=== PATIENT | male | born 1940 | race Hispanic/Latino ===

== ENCOUNTER 2017-12-13 06:19 | Inpatient (IN) | payer MEDICARE, OTHER ==
[2017-12-13 06:31] VITALS: BMI 23.3
--- NOTE | 2017-12-13 07:04 | CP.PCM.HP ---
History of Present Illness - History of Present Illness History of Present Illness: PMD: Dr David Orthopedic: Dr Higginbotham Chief Complaint: Right Hip pain HPI: 77 years old male with hx of Osteoarthritis of the left and right hips, and had left total hip replacement two years ago. He has been having persistent right hip pain and has failed conservative management. He was seen by his Orthopedist Dr Higginbotham and Surgery was discussed. He now comes to have an elective right total hip replacement. 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 absent: Diplopia, Floaters, Loss of Peripheral Vision Ears: Decreased Hearing. absent: Ear Discharge, Ear Pain, Tinnitus Nose/Mouth/Throat: absent: Epistaxis, Nasal Congestion, Nasal Discharge - Cardiovascular Cardiovascular: absent: Chest Pain, Dyspnea, Edema - Respiratory Respiratory: absent: Cough, Dyspnea, Wheezing, Stridor - Gastrointestinal Gastrointestinal: absent: Abdominal Pain, Constipation, Diarrhea, Nausea, Vomiting - Genitourinary Genitourinary: absent: Dysuria, Hematuria, Urinary Frequency - Musculoskeletal Musculoskeletal: Arthralgias. absent: Back Pain Additional comments: Right hip pain - Integumentary Integumentary: absent: Pruritus, Rash, Skin Ulcer, Sores, Striae, Swelling - Neurological Neurological: absent: Confusion, Focal Weakness, Syncope, Weakness - Psychiatric Psychiatric: absent: Anxiety, Depression, Panic Attacks - Endocrine Endocrine: absent: Palpitations, Polydipsia, Polyphagia, Polyuria - Hematologic/Lymphatic Hematologic: absent: Easy Bleeding, Easy Bruising Past Patient History - Infectious Disease Hx of Infectious Diseases: None - Tetanus Immunizations Tetanus Immunization: Unknown - Past Medical History & Family History Past Medical History?: No - Past Social History Smoking Status: Former Smoker Chewing Tobacco Use: No Cigar Use: No Alcohol: Occasional Home Situation {Lives}: With Family - CARDIAC Hx Cardiac Disorders: No - PULMONARY Hx Respiratory Disorders: No - NEUROLOGICAL Hx Neurological Disorder: No - HEENT Hx HEENT Problems: No - RENAL Hx Chronic Kidney Disease: No - ENDOCRINE/METABOLIC Hx Endocrine Disorders: No - HEMATOLOGICAL/ONCOLOGICAL Hx Blood Disorders: No - INTEGUMENTARY Hx Dermatological Problems: No - MUSCULOSKELETAL/RHEUMATOLOGICAL Hx Musculoskeletal Disorders: No - GASTROINTESTINAL Hx Gastrointestinal Disorders: No - GENITOURINARY/GYNECOLOGICAL Hx Genitourinary Disorders: No - PSYCHIATRIC Hx Psychophysiologic Disorder: No Hx Substance Use: No - SURGICAL HISTORY Hx Surgeries: Yes Hx Herniorrhaphy: Yes Hx Musculoskeletal Surgery: Yes (Left knee miniscus repair) Hx Orthopedic Surgery: Yes (2016 R hip) - ANESTHESIA Hx Anesthesia: Yes Hx Anesthesia Reactions: No Hx Malignant Hyperthermia: No Has any member of the family had a problem w/ anesthesia?: No Meds Allergies/Adverse Reactions: Allergies Allergy/AdvReac Type Severity Reaction Status Date / Time Penicillins Allergy RASH Verified 12/13/17 06:47 Physical Exam - Constitutional Appears: No Acute Distress - Head Exam Head Exam: ATRAUMATIC, NORMAL INSPECTION, NORMOCEPHALIC - Eye Exam Eye Exam: EOMI, Normal appearance Pupil Exam: NORMAL ACCOMODATION, PERRL - ENT Exam ENT Exam: Mucous Membranes Moist, Normal Exam, Normal External Ear Exam - Neck Exam Neck exam: Positive for: Full Rom, Normal Inspection. Negative for: Lymphadenopathy, Tenderness - Respiratory Exam Respiratory Exam: Clear to Auscultation Bilateral. absent: Rales, Rhonchi, Wheezes - Cardiovascular Exam Cardiovascular Exam: REGULAR RHYTHM, RRR, +S1, +S2 - GI/Abdominal Exam GI & Abdominal Exam: Normal Bowel Sounds, Soft. absent: Mass, Organomegaly, Tenderness - Rectal Exam Rectal Exam: Deferred - Extremities Exam Extremities exam: Positive for: normal inspection. Negative for: calf tenderness, pedal edema - Back Exam Back exam: NORMAL INSPECTION. absent: CVA tenderness (L), CVA tenderness (R) - Neurological Exam Neurological exam: Alert, CN II-XII Intact, Oriented x3, Reflexes Normal - Psychiatric Exam Psychiatric exam: Normal Affect, Normal Mood - Skin Skin Exam: Dry, Intact, Normal Color, Warm Assessment & Plan - Assessment and Plan (Free Text) Assessment: #. Severe Osteoarthritis Right hip Plan: 77 years old male with hx of Osteoarthritis of the left and right hips, and had left total hip replacement two years ago. He has been having persistent right hip pain and has failed conservative management. He was seen by his Orthopedist Dr Higginbotham and Surgery was discussed. He now comes to have an elective right total hip replacement. #. Primary Osteoarthritis Right hip - Dr Higginbotham orthopedist on consult - Orthopedic management - PT/OT post surgery #. DVT prophylaxis post surgery with lovenox #. Code Status: Full The patient was cleared for surgery by Dr David Cleared for Surgery Constantine Santos MD ( - Date & Time Date: 12/13/17 Time: 07:04
[2017-12-13] MEDS ORDERED: Succinylcholine 200 mg/10 ml Inj IV ONE (07:15)
[2017-12-13] MEDS ORDERED: Lidocaine 4% (Laryng-O-Jet) Kit MM ONE (07:15)
[2017-12-13] MEDS ORDERED: Midazolam 2 MG/2 ML VIAL ONE (07:15)
[2017-12-13] MEDS ORDERED: Propofol 10 mg/ml Inj (20 ML) ONE (07:15)
[2017-12-13] MEDS ORDERED: Lidocaine 1% 5ml Abboject IV ONE (07:16)
[2017-12-13] MEDS ORDERED: Lactated Ringer's 1,000 ML IV ONE ×3 (07:20→09:50)
[2017-12-13] MEDS ORDERED: Phenylephrine 10 mg/ml Inj ONE (07:22)
[2017-12-13] MEDS ORDERED: Rocuronium 10 mg/ml (5 ml) ONE ×2 (07:32→10:14)
--- NOTE | 2017-12-13 07:41 | CP.PCM.CON ---
History of Present Illness - History of Present Illness History of Present Illness: Patient is a 77 y/o male with no significant PMH who c/o severe right hip pain. He denies any injury or trauma to the hip but notes that the pain began approximately 2 years ago and has progressed gradually. Over the last few months, the pain had significantly increased hindering him from performing his usual daily activities such as walking, sitting and sleeping. The pain has been resistant to conservative means with PT and oral medications. The pain is severe, dull and aching and located in the groin and lateral hip. He has history of succesful R KITTY 2 years ago. He denies any radiation of pain, numbess or tingling to the lower extremities. He denies CP/SOB/N/V/D/ZULUAGA/dysuria/ melena. Review of Systems - Review of Systems All systems: reviewed and no additional remarkable complaints except Review of Systems: as per HPI Past Patient History - Infectious Disease Hx of Infectious Diseases: None - Tetanus Immunizations Tetanus Immunization: Unknown - Past Medical History & Family History Past Medical History?: No - Past Social History Smoking Status: Former Smoker Alcohol: Occasional Home Situation {Lives}: With Family - CARDIAC Hx Cardiac Disorders: No - PULMONARY Hx Respiratory Disorders: No - NEUROLOGICAL Hx Neurological Disorder: No - HEENT Hx HEENT Problems: No - RENAL Hx Chronic Kidney Disease: No - ENDOCRINE/METABOLIC Hx Endocrine Disorders: No - HEMATOLOGICAL/ONCOLOGICAL Hx Blood Disorders: No - INTEGUMENTARY Hx Dermatological Problems: No - MUSCULOSKELETAL/RHEUMATOLOGICAL Hx Musculoskeletal Disorders: No - GENITOURINARY/GYNECOLOGICAL Hx Genitourinary Disorders: No - PSYCHIATRIC Hx Psychophysiologic Disorder: No Hx Substance Use: No - SURGICAL HISTORY Hx Surgeries: Yes Hx Herniorrhaphy: Yes Hx Musculoskeletal Surgery: Yes (Left knee arthroscopy) Hx Orthopedic Surgery: Yes (2016 R hip) - ANESTHESIA Hx Anesthesia: Yes Hx Anesthesia Reactions: No Hx Malignant Hyperthermia: No Has any member of the family had a problem w/ anesthesia?: No Meds Allergies/Adverse Reactions: Allergies Allergy/AdvReac Type Severity Reaction Status Date / Time Penicillins Allergy RASH Verified 12/13/17 06:47 - Medications Medications: none Physical Exam - Constitutional Appears: No Acute Distress - Head Exam Head Exam: ATRAUMATIC, NORMOCEPHALIC - Eye Exam Eye Exam: EOMI, Normal appearance, PERRL - ENT Exam ENT Exam: Mucous Membranes Moist - Respiratory Exam Respiratory Exam: NORMAL BREATHING PATTERN - GI/Abdominal Exam GI & Abdominal Exam: Normal Bowel Sounds, Soft. absent: Tenderness - Extremities Exam Additional comments: R hip: + tenderness to groin and lateral hip, no lesion or deformity restricted ROM secondary to pain sensation intact SP/DP/TN motor intact EHL/FHL/TA/G pedal pulses intact comp soft NT L hip: no tenderness to groin and lateral hip, no deformity, old KITTY scar laterally FROM sensation intact SP/DP/TN motor intact EHL/FHL/TA/G pedal pulses intact comp soft NT Results - Vital Signs Recent Vital Signs: Last Vital Signs Temp 97.8 F 12/13/17 07:00 Pulse 67 12/13/17 07:00 Resp 18 12/13/17 07:00 BP 138/77 12/13/17 07:00 Pulse Ox 97 12/13/17 07:00 Assessment & Plan (1) Osteoarthritis of right hip Assessment and Plan: -OR for Right total hip arthroplasty -medically cleared for procedure -Patient was explained the benefits/risks/adv/disadv of surgery in detail. Patient expresses understanding and agrees to proceed with above procedure -above d/w Dr. Higginbotham in agreement Status: Acute
[2017-12-13] MEDS ORDERED: Morphine 1 mg/ml preservative-free Inj(Duramorph) ONE (08:00)
[2017-12-13] MEDS ORDERED: Bupivacaine 0.5% Inj(30mL) ONE (08:05)
[2017-12-13] MEDS ORDERED: methylPREDNISolone Depo 80 mg/ml Inj ONE (08:05)
[2017-12-13] MEDS ORDERED: Lidocaine Hydrochloride 1% 0 ML ONE (08:05)
[2017-12-13] MEDS ORDERED: Bacitracin Ointment 30 GM TUBE ONE (08:05)
[2017-12-13] MEDS ORDERED: Absorbable Gelatin Sponge Size 100 ONE (08:05)
[2017-12-13] MEDS ORDERED: Thrombin Topical 5,000 Int Units Spray Kit ONE (08:06)
[2017-12-13] MEDS ORDERED: ePHEDrine 50 mg/ml Inj ONE (08:12)
[2017-12-13] MEDS ORDERED: Absorbable Gelatin Sponge Size 100 TP ONE (09:30)
[2017-12-13] MEDS ORDERED: Thrombin Topical 5,000 Int Units Spray Kit TOP ONE ×2 (09:30)
[2017-12-13] MEDS ORDERED: TRANEXAMIC ACID IVPB STA ×2 (11:14→11:38)
[2017-12-13] MEDS ORDERED: SODIUM CHLORIDE 0.9% IVPB STA ×2 (11:14→11:38)
[2017-12-13] MEDS ORDERED: Oxycodone/Acetaminophen 5/325 mg Tab PO PRN (11:37)
[2017-12-13] MEDS ORDERED: DiphenhydrAMINE 50 mg/ml Inj IVP PRN (11:39)
--- NOTE | 2017-12-13 11:43 | PCM.SURG1 ---
Surgeon's Initial Post Op Note - Surgeon's Notes Surgeon: Neftaly Actimize Architect: REDDY Hendrix, 2nd assist Juan Cedillo Type of Anesthesia: General Endo, Spinal Anesthesia Administered By: Dr Martinez Pre-Operative Diagnosis: Severe hypertrophic Osteoarthritis R hip Operative Findings: as above. synovits R hip. iliopsoas tendon contracture Post-Operative Diagnosis: as above Operation Performed: R THR- anterior approach. femoral neck osteotomy. release iliosoas tendon\. autograft bone graft to acetabulum Specimen/Specimens Removed: bone/cartilage/synovium Estimated Blood Loss: EBL {In ML}: 100 Blood Products Given: N/A Drains Used: No Drains Post-Op Condition: Good Date of Surgery/Procedure: 12/13/17 Time of Surgery/Procedure: 09:10 (rtime in room/anesthesia industion time 7:55)
[2017-12-13] MEDS ORDERED: Tranexamic Acid 100 mg/ml IV ONE (12:30)
--- NOTE | 2017-12-13 14:16 | RAD ---
PROCEDURE: Fluoroscopy up to 1 hr. HISTORY: Fluoroscopic assistance for right hip replacement. COMPARISON: None TECHNIQUE: Standard protocol for this study/examination. FINDINGS: Total fluoroscopic time (continuous mode) utilized during the procedure 16.4 (seconds). Total exam DLP: (mGy) 1.76. IMPRESSION: Less than 1 hr fluoroscopic time utilized during performance of the procedure.
--- NOTE | 2017-12-13 14:38 | RAD ---
PROCEDURE: Right Hip Radiographs. HISTORY: s/p right hip TRR anterior COMPARISON: 03/01/2016 left hip FINDINGS: BONES: Left hip prosthesis in stable, satisfactory position. Unremarkable right hip prosthesis. No evidence of subluxation/dislocation or protrusio nor is there evidence of loosening. JOINTS: Normal. SOFT TISSUES: Normal. OTHER FINDINGS: None. IMPRESSION: Satisfactory postoperative status.
[2017-12-13] MEDS: Clindamycin 600mg/50ml D5W 600 MG/50 ML VIAL IVPB SCH (17:19)
[2017-12-13] MEDS: Lactated Ringer's 1,000 ML IV SCH (17:25)
[2017-12-14] MEDS: Clindamycin 600mg/50ml D5W 600 MG/50 ML VIAL IVPB SCH (00:21)
[2017-12-14] MEDS: Lactated Ringer's 1,000 ML IV SCH ×2 (01:05→03:41)
[2017-12-14 06:47] LABS: HEMOGLOBIN 9.6 g/dL (12.0-18.0); MEAN CELL VOLUME 95.7 fl (80.0-94.0); MEAN CORPUSCULAR HEMOGLOBIN 32.7 pg (27.0-31.0); MEAN CORPUSCULAR HGB CONC 34.1 g/dL (33.0-37.0); RBC 2.95 Mil/uL (4.40-5.90); RED CELL DISTRIBUTION WIDTH 13.1 % (11.5-14.5); WHITE BLOOD COUNT 7.4 K/uL (4.8-10.8)
[2017-12-14 06:58] LABS: BLOOD UREA NITROGEN 16 mg/dl (9-20); CALCIUM 7.8 mg/dL (8.4-10.2); GFR AFRICAN-AMERICAN > 60; GFR NON-AFRICAN AMERICAN > 60
[2017-12-14 07:04] LABS: INR 1.3 (0.9-1.2); PARTIAL THROMBOPLASTIN TIME 25.4 Seconds (25.6-37.1); PROTHROMBIN TIME 14.7 Seconds (9.8-13.1)
[2017-12-14 07:57] VITALS: BP 103/63; PULSE 88; RESP 18; O2SAT 96
[2017-12-14] MEDS ORDERED: Enoxaparin 40 mg Syringe SC SCH (09:00)
--- NOTE | 2017-12-14 09:46 | CP.PCM.PN ---
Subjective - Date & Time of Evaluation Date of Evaluation: 12/14/17 Time of Evaluation: 09:44 - Subjective Subjective: Ortho f/u Dr. Higginbotham Patient states pain is well controlled. Tolerated PT very well yesterday. Denies CP/SOB/dizziness/numbness/tingling. Good PO intake. Objective - Vital Signs/Intake and Output Vital Signs (last 24 hours): Temp Pulse Resp BP Pulse Ox 99.2 F 88 18 103/63 96 12/14/17 07:57 12/14/17 07:57 12/14/17 07:57 12/14/17 07:57 12/14/17 07:57 - Medications Medications: Current Medications Acetaminophen (Tylenol 325mg Tab) 650 mg PO Q4 PRN PRN Reason: Fever 101 degrees fahrenheit Last Admin: 12/14/17 03:38 Dose: 650 mg Diphenhydramine HCl (Benadryl) 50 mg IVP Q6 PRN PRN Reason: Itching / Pruritus Docusate Sodium (Colace) 100 mg PO BID [facility] Last Admin: 12/13/17 16:27 Dose: 100 mg Enoxaparin Sodium (Lovenox) 40 mg SC DAILY [facility] PRN Reason: Protocol Ferrous Sulfate (Feosol) 325 mg PO BID [facility] Last Admin: 12/13/17 16:28 Dose: 325 mg Lactated Ringer's (Lactated Ringer's) 1,000 mls @ 125 mls/hr IV .Q8H [facility] Last Admin: 12/14/17 03:41 Dose: Not Given Morphine Sulfate (Morphine) 2 mg IVP Q4 PRN PRN Reason: Pain, severe (8-10) Ondansetron HCl (Zofran Inj) 4 mg IVP Q6 PRN PRN Reason: Nausea/Vomiting Ondansetron HCl (Zofran Inj) 4 mg IVP ONCE PRN PRN Reason: Nausea/Vomiting Oxycodone/Acetaminophen (Percocet 5/325 Mg Tab) 2 tab PO Q4 PRN PRN Reason: Pain, severe (8-10) Stop: 12/16/17 11:38 - Labs Labs: 12/14/17 05:35 12/14/17 05:35 PT 14.7 Seconds (9.8-13.1) H 12/14/17 05:35 INR 1.3 (0.9-1.2) H 12/14/17 05:35 APTT 25.4 Seconds (25.6-37.1) L 12/14/17 05:35 - Extremities Exam Additional comments: right hip: dressing change. Incision intact, dry, no erythema, mild swelling only to thigh +ROM ankle/toes, sensation intact +DP/PT pulses calves soft NT neg homans Assessment and Plan (1) Osteoarthritis of right hip Assessment & Plan: POD#1 s/p right THR d/c home today with home PT patient has walker continue aspiring 81mg PO BID for VTE proph on discharge keep incision dry/dressed f/u Dr. Higginbotham 7-10 days call for appointment d/w Dr. Higginbotham, agrees with above Status: Acute
[2017-12-14 11:40] VITALS: TEMP 98.1
--- NOTE | 2017-12-14 11:43 | CP.PCM.DIS ---
Provider - Provider Date of Admission: 12/13/17 08:09 Attending physician: Constantine Santos Primary care physician: Escobar Higginbotham III, MD Consults: Ortho: Dr Higginbotham Time Spent in preparation of Discharge (in minutes): 25 Diagnosis - Discharge Diagnosis (1) Osteoarthritis of right hip Status: Chronic (2) Status post total hip replacement, right Status: Acute (3) DVT prophylaxis Status: Acute Hospital Course - Lab Results Lab Results: Most Recent Lab Values WBC 7.4 K/uL (4.8-10.8) 12/14/17 05:35 RBC 2.95 Mil/uL (4.40-5.90) L 12/14/17 05:35 Hgb 9.6 g/dL (12.0-18.0) L 12/14/17 05:35 Hct 28.3 % (35.0-51.0) L 12/14/17 05:35 MCV 95.7 fl (80.0-94.0) H 12/14/17 05:35 MCH 32.7 pg (27.0-31.0) H 12/14/17 05:35 MCHC 34.1 g/dL (33.0-37.0) 12/14/17 05:35 RDW 13.1 % (11.5-14.5) 12/14/17 05:35 Plt Count 186 K/uL (130-400) 12/14/17 05:35 PT 14.7 Seconds (9.8-13.1) H 12/14/17 05:35 INR 1.3 (0.9-1.2) H 12/14/17 05:35 APTT 25.4 Seconds (25.6-37.1) L 12/14/17 05:35 Sodium 136 mmol/l (132-148) 12/14/17 05:35 Potassium 4.3 MMOL/L (3.6-5.0) 12/14/17 05:35 Chloride 101 mmol/L (98-107) 12/14/17 05:35 Carbon Dioxide 25 mmol/L (22-30) 12/14/17 05:35 Anion Gap 14 (10-20) 12/14/17 05:35 BUN 16 mg/dl (9-20) 12/14/17 05:35 Creatinine 0.9 mg/dl (0.8-1.5) 12/14/17 05:35 Est GFR ( Amer) > 60 12/14/17 05:35 Est GFR (Non-Af Amer) > 60 12/14/17 05:35 Random Glucose 119 mg/dL (75-110) H 12/14/17 05:35 Calcium 7.8 mg/dL (8.4-10.2) L 12/14/17 05:35 Blood Type A NEGATIVE 12/13/17 07:41 Antibody Screen Negative 12/13/17 07:41 Crossmatch See Detail 12/13/17 07:41 BBK History Checked Patient has bt 12/13/17 07:41 - Hospital Course Hospital Course: 77 years old male with hx of Osteoarthritis of the left and right hip, and had left total hip replacement two years ago. He has been having persistent right hip pain and has failed conservative management. He was seen by his Orthopedic Surgeon Dr Higginbotham - recommended right total hip replacement. 1. Primary Osteoarthritis Right hip s/p THR - Ortho : DR Higginbotham - pt underwent THR -Pain mgt - Pt received IV Clinda x 3 doses -PT/OT consulted- rec Home PT - DVT proph 2. DVT prophylaxis post surgery with lovenox Discharge Exam - Head Exam Head Exam: ATRAUMATIC, NORMAL INSPECTION, NORMOCEPHALIC - Eye Exam Eye Exam: EOMI, Normal appearance Pupil Exam: NORMAL ACCOMODATION - ENT Exam ENT Exam: Mucous Membranes Moist, Normal External Ear Exam - Neck Exam Neck exam: Full Rom - Respiratory Exam Respiratory Exam: NORMAL BREATHING PATTERN. absent: Respiratory Distress - Cardiovascular Exam Cardiovascular Exam: REGULAR RHYTHM, +S1, +S2 - GI/Abdominal Exam GI & Abdominal Exam: Normal Bowel Sounds, Soft. absent: Tenderness - Extremities Exam Extremities exam: normal capillary refill, pedal pulses present Additional comments: no calf tenderness right hip dressing intact - Back Exam Back exam: FULL ROM. absent: CVA tenderness (L), CVA tenderness (R) - Neurological Exam Neurological exam: Alert, CN II-XII Intact, Oriented x3, Reflexes Normal - Psychiatric Exam Psychiatric exam: Normal Affect, Normal Mood - Skin Skin Exam: Dry, Normal Color, Warm Discharge Plan - Discharge Medications Prescriptions: Aspirin [Adult Aspirin Regimen] 81 mg PO BID #60 tablet. Docusate [Colace] 100 mg PO BID #60 cap Ferrous Sulfate [Feosol] 325 mg PO BID #60 tab oxyCODONE/Acetaminophen [Percocet 5/325 mg Tab] 1 tab PO Q6 #20 tab - Follow Up Plan Condition: GOOD Disposition: HOME/ ROUTINE Instructions: Anterior Hip Replacement (DC) Additional Instructions: follow up with Dr. Higginbotham and your primary MD in 1 wk Home PT Referrals: Escobar Higginbotham III, MD [Primary Care Provider] -
--- NOTE | 2017-12-15 16:21 | OP ---
PROCEDURE DATE: 12/13/2017 PREOPERATIVE DIAGNOSIS: Severe hypertrophic osteoarthritis of the right hip. POSTOPERATIVE DIAGNOSIS: Severe hypertrophic osteoarthritis of the right hip. OPERATIVE FINDINGS: 1. Severe hypertrophic osteoarthritis of the right hip. 2. Synovitis of the right hip. 3. Iliopsoas tendon contracture. OPERATION PERFORMED: 1. Right total hip replacement arthroplasty, anterior approach. 2. Femoral neck osteotomy. 3. Release of iliopsoas tendon. 4. Autograft bone graft to the acetabulum. SPECIMENS REMOVED: Bone cartilage, synovium. ESTIMATED BLOOD LOSS: 100 mL. BLOOD PRODUCTS GIVEN: None. DRAINS: None. POSTOPERATIVE CONDITION: Stable. DATE OF SURGERY: 12/13/2017. TIME IN THE ROOM: 7:55. INCISION TIME: 9:10. SURGEON: Escobar Higginbotham MD PUTTY PATCHER: Aga Harrell, certified registered nursing visitor use assistant. SECOND WOOD EXPERIMENTAL MECHANIC: Juan Riley PA-C OPERATIVE INDICATIONS: Dominick Nunn is a 77-year-old gentleman, who is well known to my practice, who presents with severe pain and restricted range of motion of the right hip for a long period of time. The patient is 2 years status post contralateral hip replacement arthroplasty. The patient presents at this point in time for right total hip replacement arthroplasty. Pros, cons, risks, and benefits of surgical approach were discussed. The possibility of mechanical failure, infection, leg length inequality, thromboembolic disease, secondary or tertiary surgery were discussed. The patient has failed a conservative course consisting of activity modification, nonsteroidal anti-inflammatory medication. The patient can no longer withstand the discomfort and wished the surgery to be accomplished. DESCRIPTION OF THE PROCEDURE: After having obtained informed consent in the above fashion, after having identified side, site, and procedure and a critical pause/time-out, after the satisfactory induction of spinal and regional anesthesia and general anesthesia, the patient identified as Dominick Nunn, was placed in supine position in the [facility] positioner. All bony prominences were well padded. Great care was taken that the operative field was sterilely prepped and draped under the surgeon's direction, the fluoroscope was positioned, video images were generated and therapeutic decisions were made therefrom. It should be noted that there was evidence of a leg-length inequality, with the right lower extremity somewhat shorter than the left. The patient had presented with marked discomfort and was aware of this. Again, after sterilely prepping and draping, an incision was accomplished 2 cm distal to the ASIS and 3 cm posterior. An incision was described obliquely superficial to the tensor fascia femoris muscle, and the skin incision was carried down through the skin and subcutaneous tissue. The tensor fascia femoris muscle was taken down from the investing fascia, and at this point in time, the Adson-Saima Medacta modification was employed. The posterior aspect of the rectus femoris muscle was identified. Hemostasis controlled with the Aquamantys and electrocautery. The fascia was identified, and the posterior aspect of the rectus femoris was identified and the Adson-Saima retractor was placed deep and the fascia was divided. The vessels were identified and were controlled with the tonsils. This having been accomplished, the vessels were divided and were controlled using the suture and ligature. This having been accomplished, the fat pad superficial to the rectus femoris reflected head was excised and the reflected head of rectus femoris was identified. The external rotation was accomplished, the rectus femoris muscle was released, the fat pad having been excised. This having been accomplished, the capsulotomy was accomplished to the area of the intertrochanteric line, identified by the intertrochanteric tubercle. This was elevated and the capsular flap was tagged at this point in time, again with reference from preoperative planning, a femoral neck osteotomy was accomplished. This was essentially a separate procedure because of the calculation accomplished for the leg lengths. Femoral neck osteotomy was accomplished. At this point in time, hip arthrotomy was accomplished and the traction was externally rotated to 45 degrees. Femoral neck osteotomy having been identified, the corkscrew was introduced and the femoral head was removed from the acetabulum. The head measured approximately 48 mm. At this point in time, synovectomy of the hip was accomplished. There was found to be evidence of exuberant synovitis and the pulvinar was excised as well. The labrum was excised, and reaming was carried out to approximately 52 mm. Reaming was accomplished in approximately 40 degrees of abduction and 10-15 degrees of anteversion. The reamings were denuded of articular cartilage, and the reamings were safe for bone grafting. This having been accomplished, the bone grafting to the acetabulum was accomplished. The Medacta cup was impacted in approximately 40 degrees of abduction and 10 degrees of anteversion. It should be noted that the patient had excessive anteversion at the neck, and this having been accomplished with the lower extremity in approximately 90 degrees of external rotation, the pubofemoral ligament was identified and was carefully released. Hemostasis was controlled with the Aquamantys. At this point in time, the ischiofemoral ligament and the iliofemoral ligament were released as well with great care taken to dissect the obturator fossa. This having been accomplished, the autograft bone grafting having been applied to the acetabulum for impaction of the cup, and the cup having been impacted, the iliopsoas tendon was found to be tight as well and the iliopsoas tendon was released. The anterior capsule was released. The ischiofemoral and iliofemoral ligaments were released. This having been accomplished, the retractors were placed medially and posteriorly, and the femoral neck was exposed. At this point in time, the bridge of bone between the neck and the shaft was removed using the rasp, the shaft was found using the rasp, and broaching was accomplished to approximately a #3 femoral component. The #3 femoral component was found to be a bit loose, #4 femoral component was employed with a neutral head and the 52 mm outer bearing. The hip was reduced and found to be stable in all planes. Hemostasis was controlled using electrocautery. Thrombin and Gelfoam was accomplished as well. At this point in time, the definitive Medacta femoral component was impacted with the 28-mm neutral ceramic head impacted with the 52 mm outer bearing. The hip was reduced and found to be stable in all planes. The wound was thoroughly irrigated. Hemostasis was controlled with the FloSeal with thrombin and Gelfoam, and closure of the fascia was with 0 Quill, followed by 0 Quill and megan for skin. No Hemovac was employed. Compression dressing was applied. Postoperative x-rays reveal excellent position of the construct. The patient was transferred from the operating table to the stretcher having tolerated the procedure well. Escobar Higginbotham MD
== END 2017-12-14 12:57 | disposition home health service (06) | DRG 470 ==
LOC: H.OPSURG 06:19 → H.MEDSURG1 08:09
PROVIDERS: ADMIT Internal Medicine; ATTEND Internal Medicine
PROC: 0SB90ZZ Excision of Right Hip Joint, Open Approach (ICD-10-PCS; 2017-12-13)
PROC: 0SR903Z Replacement of Right Hip Joint with Ceramic Synthetic Substitute, Open Approach (ICD-10-PCS; principal; 2017-12-13 07:45)
DX: M16.11 Unilateral primary osteoarthritis, right hip (principal); M65.9 Synovitis and tenosynovitis, unspecified; Z87.891 Personal history of nicotine dependence; Z96.642 Presence of left artificial hip joint